=== PATIENT | male | born 1955 | race Caucasian/White ===

== ENCOUNTER 2022-04-07 15:38 | Outpatient (REF) | payer MEDICARE, OTHER, SELFPAY ==
[2022-04-07 18:46] LABS: Abs Immature Grans 0.04 10^3/uL (0.0-0.06); Absolute Basophil Count 0.02 10^3/uL (0.0-0.2); Absolute Eosinophil Count 0.03 10^3/uL (0.0-0.7); Absolute Lymphocyte Count 0.95 10^3/uL (1.2-3.4); Absolute Monocyte Count 0.85 10^3/uL (0.1-0.8); Absolute Neutrophil Count 4.39 10^3/uL (1.2-6.7); Basophils % 0.3; Eosinophils % 0.5; HCT 38.6 % (40.0-50.0); Immature Grans % 0.6; Lymphocytes % 15.1; MCHC 36.3 % (32.0-36.0); MCV 85 fL (80-95); MPV 9.5 fL (8.0-11.0); Monocytes % 13.5; Platelet Count 234 10^3/uL (130-400); RBC 4.52 10^6/uL (4.36-5.78); RDW 11.5 % (11.8-14.1); RDW-SD 35.8 fL; WBC 6.28 10^3/uL (4.4-10.8)
== END 2022-04-07 15:39 | disposition home or self-care (01) ==
LOC: NCHCN 15:38
PROVIDERS: PCP Physician Assistant Medical; Visit Provider Nurse Practitioner Family
DX: R53.83 Other fatigue (principal); R05.8 Other specified cough
CPT/HCPCS: 85025